=== PATIENT | female | born 2000 | race Hispanic/Latino ===

== ENCOUNTER → 2024-05-26 | Outpatient (CLI) | LOC: M SOG 08:12 | PROVIDERS: ATTEND Orthopaedic Surgery Hand Surgery | DX: M25.531 Pain in right wrist (principal) ==

== ENCOUNTER → 2024-06-13 | Outpatient (CLI) | payer OTHER | LOC: M RAD 15:13 | PROVIDERS: ATTEND Orthopaedic Surgery Hand Surgery | DX: S62.001A Unspecified fracture of navicular [scaphoid] bone of right wrist, initial encounter for closed fracture (principal); W18.30XA Fall on same level, unspecified, initial encounter; Y92.009 Unspecified place in unspecified non-institutional (private) residence as the place of occurrence of the external cause ==

== ENCOUNTER → 2024-08-05 | Outpatient (CLI) | payer OTHER | LOC: M SOG 13:59 | PROVIDERS: ATTEND Physician Assistant | DX: M25.531 Pain in right wrist (principal) ==